=== PATIENT | male | born 1935 | race Caucasian/White ===

== ENCOUNTER 2018-12-19 05:15 | Day surgery (SDC) | payer MEDICARE, BC ==
[2018-12-16 10:12] LABS: BASOPHILS # (AUTO) 0.1 X10'3 (0-0.2); EOSINOPHILS # (AUTO) 0.1 X10'3 (0-0.9); HEMATOCRIT 47.2 % (42.0-52.0); HEMOGLOBIN 16.1 g/dl (14.0-17.9); LYMPHOCYTES # (AUTO) 1.4 X10'3 (1.1-4.8); LYMPHOCYTES % (AUTO) 28.7 % (21-51); MEAN CORPUSCULAR HEMOGLOBIN 33.2 PG (27.0-31.0); MEAN CORPUSCULAR HGB CONC 34.1 g/dL (33.0-36.5); MEAN CORPUSCULAR VOLUME 97.4 FL (78-98); MEAN PLATELET VOLUME 9.7 FL (7.4-10.4); MONOCYTES # (AUTO) 0.6 X10'3 (0-0.9); MONOCYTES % (AUTO) 11.6 % (2-12); NEUTROPHILS # (AUTO) 2.6 X10'3 (1.8-7.7); NEUTROPHILS % (AUTO) 55.7 % (42-75); PLATELET COUNT 133 X10'3 (140-440); RED BLOOD COUNT 4.84 X10'6 (4.70-6.10); RED CELL DISTRIBUTION WIDTH 13.6 % (11.5-14.5); WHITE BLOOD COUNT 4.8 X10'3 (4.5-11.0)
[2018-12-16 10:21] LABS: ALBUMIN 3.6 G/DL (3.4-5.0); ANION GAP 7 (8-16); BLOOD UREA NITROGEN 19 MG/DL (7-18); BUN/CREATININE RATIO 22.6 (5.4-32.0); CALCIUM 9.1 MG/DL (8.5-10.1); CHLORIDE 106 MMOL/L (99-107); CREATININE 0.84 MG/DL (0.60-1.10); GLUCOSE 112 MG/DL (70-104); POTASSIUM 4.8 MMOL/L (3.5-5.1); SODIUM 142 MMOL/L (135-145); eGFR 87 ML/MIN
[2018-12-16 10:35] LABS: INR 2.2 INR; PARTIAL THROMBOPLASTIN TIME 48 SECONDS (22-32); PROTHROMBIN TIME 21.3 SECONDS (9.0-12.0)
[2018-12-19] VITALS (11 sets, daily range): BP systolic 97–137; BP diastolic 57–81
[~2018-12-19] VITALS: Ht 190.5 cm; Wt 120.0 kg
[~2018-12-19 05:15] MED LIST: ASCO-283 PO; CALC-793 PO; CHOL400C8 PO; DOXA2TAB2 PO; FERR134T2 PO; GLUC1CAP8 PO; LISI-604 PO; SAWP1CAP PO; WARF-55 PO
[2018-12-19] MEDS ORDERED: diphenhydrAMINE 25mg capsule PO PRN (05:45)
[2018-12-19] MEDS ORDERED: normal saline 1000ml 1,000 ML IV SCH (05:45)
[2018-12-19] MEDS ORDERED: LORazepam 0.5 MG tablet PO PRN (05:45)
[2018-12-19] MEDS ORDERED: ASPI-1265 PO (06:05)
[2018-12-19] MEDS ORDERED: ATOR20TA PO (06:05)
[2018-12-19] MEDS ORDERED: COU7.5T PO (06:05)
[2018-12-19] MEDS ORDERED: ENOX120D SQ (06:05)
[2018-12-19] MEDS ORDERED: ACET-2119 PO (06:05)
[2018-12-19] MEDS ORDERED: LIDOcaine 1% (10mg/ml)w/preservative injection 20ml MDV ONE (06:11)
[2018-12-19] MEDS ORDERED: iohexol 350MG/ML 100ml bottle IV ONE (06:11)
[2018-12-19] MEDS ORDERED: fentaNYL/PF 50MCG/1 ML 2ML syringe ONE (06:23)
[2018-12-19] MEDS ORDERED: midazolam 2 mg/2 ml injection ONE (06:23)
[2018-12-19 06:32] LABS: INR 1.1 INR; PARTIAL THROMBOPLASTIN TIME 38 SECONDS (22-32); PROTHROMBIN TIME 11.5 SECONDS (9.0-12.0)
== END 2018-12-19 09:55 | disposition home or self-care (01) ==
LOC: SSTAY O 05:15
PROVIDERS: ATTEND Internal Medicine Interventional Cardiology
DX: I25.10 Atherosclerotic heart disease of native coronary artery without angina pectoris (principal); I10 Essential (primary) hypertension; E78.5 Hyperlipidemia, unspecified; I73.9 Peripheral vascular disease, unspecified; Z87.891 Personal history of nicotine dependence; Z86.73 Personal history of transient ischemic attack (TIA), and cerebral infarction without residual deficits; Z79.899 Other long term (current) drug therapy
CPT/HCPCS: 36415; 80048; 85025; 85610; 85730; 93005; 93458; 99152; A6257; J1644; J2001; J2250; J3010; J7030; Q0163; Q9967; A4620; C1760; C1769

== ENCOUNTER 2019-12-15 07:21 | Emergency (ER) | payer MEDICARE, BC ==
[~2019-12-15] VITALS: Ht 190.5 cm; Wt 122.7 kg
[~2019-12-15 07:21] MED LIST changes: +ACET-2119 PO; +ASPI-1265 PO; +ATOR20TA PO; -CHOL400C8 PO; +COU7.5T PO; +ENOX120D SQ; -FERR134T2 PO; +SAW1CAPS5 PO; -SAWP1CAP PO; -WARF-55 PO
[2019-12-15 07:23] VITALS: BP 138/67
[2019-12-15] MEDS ORDERED: colchicine 0.6mg tablet PO SCH (08:10)
[2019-12-15] MEDS ORDERED: acetaminophen w/codeine (30MG) #3 tablet PO ONE (08:10)
[2019-12-15 08:52] LABS: BASOPHILS % (AUTO) 0.5 % (0-1); EOSINOPHILS # (AUTO) 0.1 X10'3 (0-0.9); EOSINOPHILS % (AUTO) 1.5 % (0-6); HEMATOCRIT 47.4 % (42.0-52.0); HEMOGLOBIN 15.9 g/dl (14.0-17.9); LYMPHOCYTES # (AUTO) 1.1 X10'3 (1.1-4.8); LYMPHOCYTES % (AUTO) 16.2 % (21-51); MEAN CORPUSCULAR HEMOGLOBIN 32.4 PG (27.0-31.0); MEAN CORPUSCULAR HGB CONC 33.5 g/dL (33.0-36.5); MEAN CORPUSCULAR VOLUME 96.9 FL (78-98); MEAN PLATELET VOLUME 9.4 FL (7.4-10.4); MONOCYTES # (AUTO) 0.8 X10'3 (0-0.9); MONOCYTES % (AUTO) 10.9 % (2-12); NEUTROPHILS % (AUTO) 70.9 % (42-75); PLATELET COUNT 120 X10'3 (140-440); RED BLOOD COUNT 4.89 X10'6 (4.70-6.10); RED CELL DISTRIBUTION WIDTH 13.8 % (11.5-14.5)
[2019-12-15 09:05] LABS: ALBUMIN 3.4 G/DL (3.4-5.0); ANION GAP 4 (8-16); BLOOD UREA NITROGEN 20 MG/DL (7-18); BUN/CREATININE RATIO 22.2 (5.4-32.0); CHLORIDE 108 MMOL/L (99-107); GLUCOSE 127 MG/DL (70-104); POTASSIUM 4.7 MMOL/L (3.5-5.1); SODIUM 141 MMOL/L (135-145); TOTAL CARBON DIOXIDE 29.3 MMOL/L (24-32); eGFR 81 ML/MIN
[2019-12-15] MEDS ORDERED: ACET-1015 PO (09:15)
[2019-12-15] MEDS ORDERED: COLC0.6T69 PO (09:15)
== END 2019-12-15 09:38 | disposition home or self-care (01) ==
LOC: ER 07:21
DX: M10.9 Gout, unspecified (principal); M25.521 Pain in right elbow; R79.1 Abnormal coagulation profile; Z86.14 Personal history of Methicillin resistant Staphylococcus aureus infection; Z79.01 Long term (current) use of anticoagulants; Z95.4 Presence of other heart-valve replacement; Z79.82 Long term (current) use of aspirin; Z79.899 Other long term (current) drug therapy
CPT/HCPCS: 36415; 73070; 80048; 84550; 85025; 85610; 99284

== ENCOUNTER 2020-12-15 08:31 | Emergency (ER) | payer MEDICARE, BC ==
[~2020-12-15] VITALS: Ht 190.5 cm; Wt 130.0 kg
[~2020-12-15 08:31] MED LIST changes: +COLC0.6T72 PO; -LISI-604 PO; +LISI-790 PO
[2020-12-15 10:18] LABS: BASOPHILS % (AUTO) 0.6 % (0-1); EOSINOPHILS # (AUTO) 0.1 X10'3 (0-0.9); EOSINOPHILS % (AUTO) 1.7 % (0-6); HEMATOCRIT 45.2 % (42.0-52.0); HEMOGLOBIN 14.9 g/dl (14.0-17.9); LYMPHOCYTES # (AUTO) 1.2 X10'3 (1.1-4.8); MEAN CORPUSCULAR HEMOGLOBIN 31.8 PG (27.0-31.0); MEAN CORPUSCULAR HGB CONC 32.9 g/dL (33.0-36.5); MEAN CORPUSCULAR VOLUME 96.8 FL (78-98); MEAN PLATELET VOLUME 9.3 FL (7.4-10.4); MONOCYTES # (AUTO) 0.6 X10'3 (0-0.9); MONOCYTES % (AUTO) 10.8 % (2-12); NEUTROPHILS # (AUTO) 3.9 X10'3 (1.8-7.7); NEUTROPHILS % (AUTO) 66.9 % (42-75); PLATELET COUNT 125 X10'3 (140-440); RED BLOOD COUNT 4.67 X10'6 (4.70-6.10); RED CELL DISTRIBUTION WIDTH 14.6 % (11.5-14.5); WHITE BLOOD COUNT 5.8 X10'3 (4.5-11.0)
[2020-12-15 10:35] LABS: ALANINE AMINOTRANSFERASE 27 U/L (12-78); ALBUMIN 3.4 G/DL (3.4-5.0); ALBUMIN/GLOBULIN RATIO 1.2 (1.1-1.5); ALKALINE PHOSPHATASE 83 IU/L (46-116); ANION GAP 8 (8-16); ASPARTATE AMINO TRANSFERASE 27 U/L (10-37); BILIRUBIN,TOTAL 0.7 MG/DL (0.1-1.0); BLOOD UREA NITROGEN 15 MG/DL (7-18); CALCIUM 9.1 MG/DL (8.5-10.1); CHLORIDE 108 MMOL/L (99-107); CREATININE 0.79 MG/DL (0.60-1.10); GLUCOSE 112 MG/DL (70-104); POTASSIUM 4.5 MMOL/L (3.5-5.1); SODIUM 143 MMOL/L (135-145); TOTAL CARBON DIOXIDE 27.1 MMOL/L (24-32); TOTAL PROTEIN 6.3 G/DL (6.4-8.2); eGFR > 90 ML/MIN
--- NOTE | 2020-12-15 11:50 | NUR ---
VASCULAR IN ROOM
[2020-12-15] MEDS ORDERED: acetaminophen 325mg tablet PO ONE (12:00)
[2020-12-15] MEDS ORDERED: enoxaparin 100mg/ml syringe SUBCUT ONE (12:55)
[2020-12-15] MEDS ORDERED: enoxaparin 40mg/0.4ml syringe SUBCUT ONE (13:00)
[2020-12-15] MEDS ORDERED: enoxaparin 30mg/0.3ml syringe SUBCUT ONE (13:00)
[2020-12-15] MEDS ORDERED: ENOX40SY7 SQ (13:08)
--- NOTE | 2020-12-15 13:11 | NUR ---
MD PARKER IN ROOM EXPLAINING DISCHARGE PLAN WITH HOME LOVENOX AND STOP COUMADIN
--- NOTE | 2020-12-15 13:13 | NUR ---
PATIENT SEES BUSINESS INTELLIGENCE ETL DEVELOPER CORI GOMEZ AT [facility]() HEALTH EDUCATION FOR MONITORING COUMADIN AND PMD DR LEBLANC PATIENT WILL FOLLOWUP WITH PMD BENJI LEO WELL FOLLOW UP WITH BUSINESS INTELLIGENCE ETL DEVELOPER. PATIENT VERBALIZED UNDERSTANDING OF TREATMENT PLAN.
--- NOTE | 2020-12-15 13:17 | NUR ---
PATIENT PROVIDED FIRST DOSE LOVENOX INFORMATION AND HANDOUT. I INSTRUCTED PATIENT HOW TO GIVE LOVENOX SQ. I GAVE PATIENT HIS 4O MG DOSE SQ. I MONITORED PATIENT WHILE HE GAVE HIMSELF THE 30 MG LOVENOX SQ FROM START TO FINISH TO HIS RIGHT LOWER ABDOMEN. PATIENT DEMONSTRATED EXCELLENT TECHNIQUE IN ADMINISTRATION WELL RETRACTION OF THE NEEDLE WITHIN THE SYRINGE.
--- NOTE | 2020-12-15 13:40 | NUR ---
PATIENT GIVEN DISCHARGE INSTRUCTIONS, FOLLOW UP INFORMATION AND PRESCRIPTION. PATIENT SON IS COMING TO GET PATIENT. PATIENT AMBULATORY WITH CANE UPON DISCHARGE. NO COMPLIANTS
[2020-12-15 13:48] VITALS: BP 160/70
== END 2020-12-15 13:38 | disposition home or self-care (01) ==
LOC: ER 08:32
DX: I82.401 Acute embolism and thrombosis of unspecified deep veins of right lower extremity (principal); M10.9 Gout, unspecified; Z79.82 Long term (current) use of aspirin; Z79.899 Other long term (current) drug therapy; Z79.01 Long term (current) use of anticoagulants
CPT/HCPCS: 36415; 80053; 85025; 85610; 93005; 93971; 96372; 99285; J1650

== ENCOUNTER 2020-12-23 14:48 | Emergency (ER) | payer MEDICARE, BC ==
[~2020-12-23] VITALS: Ht 190.5 cm; Wt 102.3 kg
[~2020-12-23 14:48] MED LIST changes: +ENOX40SY7 SQ
[2020-12-23 15:10] VITALS: BP 123/49
[2020-12-23 15:48] LABS: BASOPHILS % (AUTO) 0.4 % (0-1); EOSINOPHILS % (AUTO) 0.5 % (0-6); HEMATOCRIT 23.2 % (42.0-52.0); HEMOGLOBIN 7.7 g/dl (14.0-17.9); LYMPHOCYTES # (AUTO) 1.2 X10'3 (1.1-4.8); MEAN CORPUSCULAR HEMOGLOBIN 32.7 PG (27.0-31.0); MEAN CORPUSCULAR HGB CONC 33.4 g/dL (33.0-36.5); MEAN PLATELET VOLUME 9.4 FL (7.4-10.4); MONOCYTES # (AUTO) 0.8 X10'3 (0-0.9); NEUTROPHILS # (AUTO) 6.1 X10'3 (1.8-7.7); NEUTROPHILS % (AUTO) 74.1 % (42-75); PLATELET COUNT 151 X10'3 (140-440); RED BLOOD COUNT 2.37 X10'6 (4.70-6.10); RED CELL DISTRIBUTION WIDTH 14.5 % (11.5-14.5); WHITE BLOOD COUNT 8.3 X10'3 (4.5-11.0)
[2020-12-23 16:02] LABS: PARTIAL THROMBOPLASTIN TIME 69 SECONDS (22-32)
[2020-12-23 16:08] LABS: ALANINE AMINOTRANSFERASE 76 U/L (12-78); ALBUMIN/GLOBULIN RATIO 1.2 (1.1-1.5); ALKALINE PHOSPHATASE 65 IU/L (46-116); ANION GAP 7 (8-16); ASPARTATE AMINO TRANSFERASE 53 U/L (10-37); BILIRUBIN,TOTAL 0.9 MG/DL (0.1-1.0); BLOOD UREA NITROGEN 26 MG/DL (7-18); BUN/CREATININE RATIO 23.9 (5.4-32.0); CALCIUM 8.5 MG/DL (8.5-10.1); CHLORIDE 105 MMOL/L (99-107); CREATININE 1.09 MG/DL (0.60-1.10); GLUCOSE 113 MG/DL (70-104); POTASSIUM 4.2 MMOL/L (3.5-5.1); SODIUM 138 MMOL/L (135-145); TOTAL PROTEIN 5.5 G/DL (6.4-8.2); eGFR 64 ML/MIN
[2020-12-23 16:18] LABS: TROPONIN I < 0.04 NG/ML (0.0-0.05)
[2020-12-23 17:15] LABS: CLARITY,URINE CLEAR (Clear); COLOR,URINE YELLOW (Yellow); GLUCOSE, URINE NEGATIVE (Neg); KETONES,URINE TRACE mg/dl (Neg); LEUKOCYTE ESTERASE ,URINE NEGATIVE (Neg); NITRITES, URINE NEGATIVE (Neg); OCCULT BLOOD,URINE NEGATIVE (Neg); PH,URINE 5.5 (4.8-8.0); PROTEIN,URINE NEGATIVE (Neg)
[2020-12-23 17:23] LABS: UA COLLECTION TYPE VOIDED
--- NOTE | 2020-12-23 19:13 | NUR ---
SPOKE WITH PT'S DAUGHTER ABOUT WHAT HELP LOOKS LIKE AT HOME AND IF ITS SAFE TO DISCHARGE PT TO HOME. OSVALDO STATES THAT PT LIVES WITH NO ONE ELSE LIVES AT HOME WITH THEM BUT TWO GROWN CHILDEREN LIVE CLOSE TO HELP. PT WAS ABLE TO AMBULATE WITH WALKER 50FT. PT HAS TWO STAIRS TO GET INTO HOUSE. [phone] ARACELI BURCIAGA
--- NOTE | 2020-12-23 19:24 | NUR ---
CALLED PT'S DAUGHTER TO [employer]E [employer] AND THAT SHE NEEDS TO SET UP A FOLLOW UP APPOINTMENT WITH PT'S PCP TO GET EXTRA HELP FOR THEM AT HOME AND POSSIABLE PHYSICAL THERAPY OUT PATIENT
== END 2020-12-24 00:32 | disposition home or self-care (01) ==
LOC: ER 14:50
DX: S80.02XA Contusion of left knee, initial encounter (principal); M10.9 Gout, unspecified; Z79.01 Long term (current) use of anticoagulants; Z86.718 Personal history of other venous thrombosis and embolism; W01.0XXA Fall on same level from slipping, tripping and stumbling without subsequent striking against object, initial encounter; Z91.81 History of falling; Y93.01 Activity, walking, marching and hiking; Y92.89 Other specified places as the place of occurrence of the external cause; Y99.8 Other external cause status
CPT/HCPCS: 36415; 73564; 80053; 81003; 82553; 84484; 85025; 85610; 85730; 86885; 86900; 86901; 93005; 99285

== ENCOUNTER 2023-01-10 12:17 | Emergency (ER) | payer MEDICARE, BC ==
[~2023-01-10] VITALS: Ht 193 cm; Wt 109.1 kg
[~2023-01-10 12:17] MED LIST changes: -ENOX40SY7 SQ; -LISI-790 PO; +LISI5TAB22 PO
[2023-01-10 12:36] VITALS: BP 141/67
[2023-01-10 13:30] LABS: BASOPHILS % (AUTO) 0.5 % (0-1); EOSINOPHILS # (AUTO) 0.1 X10'3 (0-0.9); EOSINOPHILS % (AUTO) 1.4 % (0-6); HEMATOCRIT 42.3 % (42.0-52.0); HEMOGLOBIN 14.2 g/dl (14.0-17.9); LYMPHOCYTES # (AUTO) 1.5 X10'3 (1.1-4.8); LYMPHOCYTES % (AUTO) 20.1 % (21-51); MEAN CORPUSCULAR HEMOGLOBIN 33.3 PG (27.0-31.0); MEAN CORPUSCULAR HGB CONC 33.6 g/dL (33.0-36.5); MEAN CORPUSCULAR VOLUME 99.1 FL (78-98); MEAN PLATELET VOLUME 10.1 FL (7.4-10.4); MONOCYTES # (AUTO) 0.8 X10'3 (0-0.9); MONOCYTES % (AUTO) 11.6 % (2-12); NEUTROPHILS # (AUTO) 4.8 X10'3 (1.8-7.7); NEUTROPHILS % (AUTO) 66.4 % (42-75); PLATELET COUNT 107 X10'3 (140-440); RED BLOOD COUNT 4.27 X10'6 (4.70-6.10); WHITE BLOOD COUNT 7.2 X10'3 (4.5-11.0)
[2023-01-10 13:37] LABS: ALANINE AMINOTRANSFERASE 23 U/L (12-78); ALBUMIN 3.5 G/DL (3.4-5.0); ALBUMIN/GLOBULIN RATIO 1.3 (1.1-1.5); ALKALINE PHOSPHATASE 81 IU/L (46-116); ANION GAP 8 (8-16); ASPARTATE AMINO TRANSFERASE 25 U/L (10-37); BLOOD UREA NITROGEN 11 MG/DL (7-18); BUN/CREATININE RATIO 13.3 (10.0-20.0); CALCIUM 8.6 MG/DL (8.5-10.1); CHLORIDE 107 MMOL/L (99-107); CREATININE 0.83 MG/DL (0.60-1.10); GLUCOSE 105 MG/DL (70-104); POTASSIUM 4.3 MMOL/L (3.5-5.1); SODIUM 142 MMOL/L (135-145); TOTAL CARBON DIOXIDE 27.5 MMOL/L (24-32); TOTAL PROTEIN 6.2 G/DL (6.4-8.2); eGFR 88 ML/MIN
[2023-01-10 16:41] LABS: D-DIMER 0.44 MG/L FEU (0-0.50)
== END 2023-01-10 20:28 | disposition left against medical advice (07) ==
LOC: ER 12:18
DX: M79.606 Pain in leg, unspecified (principal); Z53.21 Procedure and treatment not carried out due to patient leaving prior to being seen by health care provider
CPT/HCPCS: 36415; 80053; 85025; 85379; 85730; 99281

== ENCOUNTER 2023-01-11 14:21 | Emergency (ER) | payer MEDICARE, BC ==
[~2023-01-11] VITALS: Ht 193 cm; Wt 109.1 kg
[2023-01-11 14:45] VITALS: BP 144/57
== END 2023-01-11 16:48 | disposition home or self-care (01) ==
LOC: ER 14:22
DX: S86.812A Strain of other muscle(s) and tendon(s) at lower leg level, left leg, initial encounter (principal); M17.12 Unilateral primary osteoarthritis, left knee; Z95.0 Presence of cardiac pacemaker; Z86.73 Personal history of transient ischemic attack (TIA), and cerebral infarction without residual deficits; Z86.718 Personal history of other venous thrombosis and embolism; Z98.890 Other specified postprocedural states; Z79.82 Long term (current) use of aspirin; Z79.899 Other long term (current) drug therapy; Z79.01 Long term (current) use of anticoagulants; W18.39XA Other fall on same level, initial encounter; Y93.89 Activity, other specified; Y92.89 Other specified places as the place of occurrence of the external cause; Y99.8 Other external cause status
CPT/HCPCS: 73564; 93971; 99284